=== PATIENT | male | born 1945 | race African-American/Black ===

== ENCOUNTER 2019-11-23 20:32 | Emergency (ER) | payer MEDICAID ==
[~2019-11-23] VITALS: Ht 172.7 cm; Wt 65.0 kg
[2019-11-24 05:23] VITALS: BP 148/71
== END 2019-11-24 05:24 | disposition home or self-care (01) ==
LOC: ER 20:32
DX: G47.00 Insomnia, unspecified (principal); F43.10 Post-traumatic stress disorder, unspecified; I10 Essential (primary) hypertension; G47.30 Sleep apnea, unspecified; F17.200 Nicotine dependence, unspecified, uncomplicated; Z88.0 Allergy status to penicillin; Z88.2 Allergy status to sulfonamides; Z88.8 Allergy status to other drugs, medicaments and biological substances
CPT/HCPCS: 93005; 99283